=== PATIENT | female | born 1975 | race Caucasian/White ===

== ENCOUNTER → 2018-09-21 | Outpatient (CLI) | payer BC ==
[2018-09-21 08:21] LABS: ABSOLUTE LYMPHOCYTES (AUTO) 1.1 10^3/uL (0.5-4.7); ABSOLUTE MONOCYTES (AUTO) 0.3 10^3/uL (0.1-1.4); ABSOLUTE NEUT (AUTO) 2.9 10^3/uL (1.7-8.2); BASOPHILS % (AUTO) 0.2 % (0-2); EOSINOPHILS % (AUTO) 0.9 % (0-6); HEMOGLOBIN 14.2 g/dL (12.0-15.5); LYMPHOCYTES % (AUTO) 25.8 % (13-45); MEAN CORPUSCULAR HEMOGLOBIN 32.5 pg (27.0-33.4); MEAN CORPUSCULAR HGB CONC 34.7 g/dL (32.0-36.0); MEAN CORPUSCULAR VOLUME 94 fl (80-97); PLATELET COUNT 247 10^3/uL (150-450); RED BLOOD COUNT 4.39 10^6/uL (3.72-5.28); RED CELL DISTRIBUTION WIDTH 13.1 % (11.5-14.0); SEGMENTED NEUTROPHILS % (AUTO) 67.1 % (42-78); TOTAL CELLS COUNTED % (AUTO) 100 %; WHITE BLOOD COUNT 4.4 10^3/uL (4.0-10.5)
[2018-09-21 08:45] LABS: ALBUMIN 4.1 g/dL (3.5-5.0); ANION GAP 11 (5-19); ASPARTATE AMINO TRANSFERASE 19 U/L (14-36); BLOOD UREA NITROGEN 14 mg/dL (7-20); CALCIUM 9.1 mg/dL (8.4-10.2); CARBON DIOXIDE 25 mmol/L (22-30); CHLORIDE 106 mmol/L (98-107); GLUCOSE 82 mg/dL (75-110); POTASSIUM 4.3 mmol/L (3.6-5.0); SODIUM 141.5 mmol/L (137-145)
[2018-09-21 08:46] LABS: ALANINE AMINOTRANSFERASE 13 U/L (9-52); ALKALINE PHOSPHATASE 59 U/L (38-126); BILIRUBIN,DIRECT 0.2 mg/dL (0.0-0.4); BILIRUBIN,TOTAL 0.7 mg/dL (0.2-1.3); CHOLESTEROL 156.68 mg/dL (0-200); TOTAL PROTEIN 6.4 g/dL (6.3-8.2); TRIGLYCERIDES 99 mg/dL (<150)
[2018-09-21 08:56] LABS: DIRECT LDL 96 mg/dL (<100)
[2018-09-21 10:54] LABS: THYROXINE T4 5.44 ug/dL (5.53-11.0)
[2018-09-21 11:08] LABS: TOTAL T3 1.08 ng/mL (0.970-1.69)
== END ==
LOC: OD 07:06
PROVIDERS: ATTEND Family Medicine Geriatric Medicine
DX: E83.42 Hypomagnesemia (principal); K90.0 Celiac disease; E03.9 Hypothyroidism, unspecified; G62.9 Polyneuropathy, unspecified; M25.50 Pain in unspecified joint; Z79.899 Other long term (current) drug therapy
CPT/HCPCS: 36415; 80053; 80061; 82607; 83735; 84436; 84443; 84480; 85025; 86038; 86225; 86430